=== PATIENT | male | born 1960 | race Caucasian/White ===

== ENCOUNTER 2022-09-22 09:06 | Outpatient (CLI) | payer OTHER, SELFPAY | END 2022-09-22 09:07 | disposition home or self-care (01) | PROVIDERS: PCP Family Medicine; Visit Provider Family Medicine | DX: Z00.00 Encounter for general adult medical examination without abnormal findings (principal); E66.9 Obesity, unspecified; E78.00 Pure hypercholesterolemia, unspecified; Z12.5 Encounter for screening for malignant neoplasm of prostate | CPT/HCPCS: 80053; 80061; 84153 ==

== ENCOUNTER 2022-10-17 07:07 | Outpatient (CLI) | payer OTHER, SELFPAY | END 2022-10-17 07:08 | disposition home or self-care (01) | LOC: OP CLINIC 07:09 | PROVIDERS: PCP Family Medicine; Visit Provider Surgery | DX: Z12.11 Encounter for screening for malignant neoplasm of colon (principal); K62.1 Rectal polyp | CPT/HCPCS: 45378; 99153; J2250; J3010 ==

== ENCOUNTER 2023-09-26 08:53 | Outpatient (CLI) | payer OTHER, SELFPAY | END 2023-09-26 08:54 | disposition home or self-care (01) | PROVIDERS: PCP Family Medicine; Visit Provider Family Medicine | DX: E78.00 Pure hypercholesterolemia, unspecified (principal); N40.1 Benign prostatic hyperplasia with lower urinary tract symptoms; Z12.5 Encounter for screening for malignant neoplasm of prostate; Z13.228 Encounter for screening for other metabolic disorders | CPT/HCPCS: 80053; 80061; G0103 ==